=== PATIENT | female | born 1955 | race Caucasian/White ===

== ENCOUNTER 2016-12-16 19:05 | Emergency (ER) | payer BC ==
--- NOTE | 2016-12-17 13:07 | ER ---
ADMIT: 12/16/2016 RM/LOC: ER [facility] MR#: [id number] [id number] DIMITRI MENSAH [address] [place] [id number] Emergency Room Report SEX: F AGE: 61 : 1955 DATE: 12/16/2016 HISTORY OF PRESENT ILLNESS: The patient is a 61-year-old female, came here with chief complaint of right lower back, posterior lower flank pain for the last 2-3 days. Pain started gradually and patient denies any trauma. Does not shoots to legs or to the back of the thigh and is sharp and moderate in severity and increases with palpation of the lower back in the right paraspinal area. The patient denies similar pain in the past. The patient denies any numbness, tingling, weakness, saddle anesthesia, urinary or stool incontinence or retention. The patient has been ambulating for the whole three days. PHYSICAL EXAMINATION: HEAD AND NECK: Noncontributory. RESPIRATIONS: Bilateral equal breath sounds. HEART: S1 and S2 normal heart sounds without any murmurs. ABDOMEN: Soft. Abdomen is also mildly distended, but per patient is her usual habitus. MUSCULOSKELETAL: There is no midline back tenderness or fluctuations. There is right paraspinal tender point, just one point and all other points next to it per patient is nontender. EXTREMITIES: Range of motion of all extremities are normal and the patient states she has no pain of the hips. Straight leg raise is negative. Patient could stand on both feet and can walk on tiptoes and heels. Normal deep tendon reflexes and normal sensory and motor exam. The rest of the physical exam is noncontributory except for mild tenderness on anterior right leg and posterior right leg, which the patient states she did not know she had this tenderness until I palpated the area. LABORATORY AND IMAGING DATA: Urine was negative for infection. The patient was afebrile. ESR was low. X-ray of the right lott did not show any changes ADMIT: 12/16/2016 RM/LOC: ER [facility] MR#: [id number] [id number] DIMITRI MENSAH [address] [place] [address] Emergency Room Report SEX: F AGE: 61 : 1955 in favor of infection. The rest of the lab works is noncontributory. The patient received 2.5 mL of mixture of 50% Marcaine 0.25% and lidocaine 2% with epi as a trigger point injection, which mildly decreased the pain. The patient received [place] in the ER. The patient is ambulating without difficulty and has no neural deficit or red flags for cauda equina or other cord compression syndromes. PLAN: The patient was given [place] and advised on not lifting heavy objects and not bending forward for lifting any objects, and was given the red flags for cord compressions and was discharged to home with return precautions, and follow up with the primary care doctor. The patient acknowledged she understood the plan and agreed with it. Chalino Aranda MD/ kana JOB #: [id number] CC: Nico Blunt MD, Attending Physician Fito Dunn MD, Family Physician
== END 2016-12-16 21:30 | disposition home or self-care (01) ==
LOC: ER 19:05
PROC: 3E023BZ Introduction of Anesthetic Agent into Muscle, Percutaneous Approach (ICD-10-PCS; principal; 2016-12-16)
DX: M54.5 Low back pain (principal); G89.29 Other chronic pain; I10 Essential (primary) hypertension; Z88.1 Allergy status to other antibiotic agents; Z90.710 Acquired absence of both cervix and uterus; Z79.01 Long term (current) use of anticoagulants; Z79.899 Other long term (current) drug therapy